=== PATIENT | male | born 1995 | race African-American/Black ===

== ENCOUNTER 2017-05-05 05:49 | Emergency (ER) | payer MEDICAID ==
[~2017-05-05] VITALS: Ht 162.6 cm; Wt 63.0 kg
[2017-05-05] MEDS ORDERED: OXYCODONE HCL/ACETAMINOPHEN 5/325MG TABLET PO ONE (06:45)
[2017-05-05 07:25] VITALS: BP 129/63
== END 2017-05-05 07:53 | disposition home or self-care (01) ==
LOC: ER 05:49
DX: S52.122A Displaced fracture of head of left radius, initial encounter for closed fracture (principal); Y93.64 Activity, baseball; Y92.89 Other specified places as the place of occurrence of the external cause
CPT/HCPCS: 29105; 73080; 99284; Z7610; A4565